=== PATIENT | female | born 2000 | race Caucasian/White ===

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

== ENCOUNTER 2020-03-04 12:59 | Emergency (ER) | payer OTHER ==
[~2020-03-04] VITALS: Ht 162.6 cm; Wt 63.5 kg
[2020-03-04] MEDS ORDERED: TRET0.02 (13:09)
[2020-03-04] MEDS ORDERED: SERT50TA29 (13:09)
[2020-03-04] MEDS ORDERED: BUSP5TA (13:09)
[2020-03-04] MEDS ORDERED: BENZ5LIQ14 (13:09)
[2020-03-04] MEDS ORDERED: DEPO150I (13:09)
[2020-03-04] MEDS ORDERED: MINO100C4 (13:09)
[2020-03-04] MEDS ORDERED: FAMOTIDINE INJ 20MG/2ML VIAL (S0028 PER 1) IVP ONE (13:45)
[2020-03-04] MEDS ORDERED: NS 1,000 ML IV ONE (13:45)
[2020-03-04] MEDS ORDERED: diphenhydrAMINE 50MG/ML VIAL (J1200) IV ONE (13:45)
[2020-03-04 14:48] LABS: BASO % 0.3 % (0.0-1.0); EOS # 0.1 10^3/uL (0.0-0.5); HEMATOCRIT 46.2 % (36.0-47.0); HEMOGLOBIN 14.7 g/dl (12.0-15.5); LYMPH # 1.2 10^3/uL (1.5-5.0); LYMPH % 10.4 % (24.0-44.0); MEAN CORPUSCULAR HEMOGLOBIN 28.9 pg (27.0-33.0); MEAN CORPUSCULAR HGB CONC 31.8 g/dl (32.0-36.5); MEAN CORPUSCULAR VOLUME 90.8 fl (80.0-96.0); MONO # 0.7 10^3/uL (0.0-0.8); MONO % 6.4 % (0.0-5.0); NEUTROPHILS # 9.3 10^3/uL (1.5-8.5); NEUTROPHILS % 81.6 % (36.0-66.0); PLATELET COUNT, AUTOMATED 274 10^3/uL (150-450); RED BLOOD COUNT 5.09 10^6/uL (4.00-5.40); WHITE BLOOD COUNT 11.3 10^3/uL (4.0-10.0)
[2020-03-04 15:11] LABS: ERYTHROCYTE SEDIMENTATION RATE 23 mm/hr (0-20)
[2020-03-04 15:17] LABS: HCG, SERUM QUALITATIVE NEGATIVE (NEGATIVE); MONO REFLEX EBV COMP NEGATIVE (NEGATIVE)
[2020-03-04 15:19] LABS: ALBUMIN 4.1 GM/DL (3.2-5.2); ALT/SGPT 16 U/L (12-78); BILIRUBIN,DIRECT 0.2 MG/DL (0.0-0.2); BILIRUBIN,TOTAL 0.9 MG/DL (0.2-1.0); BLOOD UREA NITROGEN 11 MG/DL (7-18); C REACTIVE PROTEIN QUANTITATIV 3.68 MG/DL (0.00-0.30); CALCIUM LEVEL 9.2 MG/DL (8.5-10.1); CARBON DIOXIDE LEVEL 23 MEQ/L (21-32); CHLORIDE LEVEL 108 MEQ/L (98-107); CREATININE FOR GFR 0.85 MG/DL (0.55-1.30); GLUCOSE, FASTING 82 MG/DL (70-100); POTASSIUM SERUM 4.3 MEQ/L (3.5-5.1); SODIUM LEVEL 138 MEQ/L (136-145); TOTAL PROTEIN 8.2 GM/DL (6.4-8.2)
[2020-03-04] MEDS ORDERED: ISOVUE-370 76% 100ML VIAL As Ordered ONE (15:54)
[2020-03-04] MEDS ORDERED: dexameTHASONE 20MG/5ML VIAL (J1100 PER 1MG) IV ONE (16:00)
[2020-03-04 16:17] VITALS: BP 138/73
--- NOTE | 2020-03-04 16:23 | REP ---
INDICATION: rlq pain, n,v. COMPARISON: None TECHNIQUE: Axial contrast-enhanced images from the lung bases to the pubic symphysis using 100 cc Isovue 370 intravenous contrast material. Coronal and sagittal reformations obtained. This CT examination was performed using the following dose reduction techniques: Automated exposure control, adjustment of mA and/or kv according to the patient's size, and the use of iterative reconstruction technique. FINDINGS: Right lower quadrant/pericecal adenopathy consistent with mesenteric adenitis. Normal appendix and terminal ileum identified. No evidence for bowel obstruction or perforation. Liver, spleen, pancreas, gallbladder, bilateral adrenal glands and kidneys appear normal (high density material within the bilateral renal pelvises likely reflect early contrast accumulation and less likely nephroliths). Pelvis demonstrates normal bladder and age-appropriate uterus/adnexa. No pelvic fluid or ascites. No free air. No adenopathy. Abdominal aorta and vasculature without aneurysm or dissection. Musculoskeletal structures are intact and without acute osseous abnormality. Lung bases are clear. IMPRESSION: Findings most compatible with acute mesenteric adenitis. <Electronically signed by Umesh French > 03/04/20 [id number]
[2020-03-04] MEDS ORDERED: PEPC1TAB5 PO (17:02)
[2020-03-04] MEDS ORDERED: PRED20TA PO (17:02)
[2020-03-06 18:07] LABS: EBV AB TO NUCLEAR ANTIGEN <18.0 U/mL (0.0-17.9); EBV VIRAL CAPSID AG IgG <18.0 U/mL (0.0-17.9); EBV VIRAL CAPSID AG IgM <36.0 U/mL (0.0-35.9); Lyme Disease IgG/IgM Antibodie <0.91 ISR (0.00-0.90); Lyme Disease IgM Ab Quantitati <0.80 index (0.00-0.79)
== END 2020-03-04 17:16 | disposition home or self-care (01) ==
LOC: M ED 12:59
DX: B34.8 Other viral infections of unspecified site (principal); I88.0 Nonspecific mesenteric lymphadenitis; B34.1 Enterovirus infection, unspecified; L29.9 Pruritus, unspecified; L50.9 Urticaria, unspecified; R19.7 Diarrhea, unspecified; J02.9 Acute pharyngitis, unspecified; F33.9 Major depressive disorder, recurrent, unspecified; F41.9 Anxiety disorder, unspecified
CPT/HCPCS: 36415; 74177; 80048; 80076; 84703; 85025; 85652; 86140; 86308; 86617; 86664; 86665; 87486; 87581; 87633; 87798; 87880; 96361; 96374; 96375; 99284; J1100; J1200; Q9967

== ENCOUNTER → 2020-04-27 | Outpatient (REF) | payer SELFPAY ==
[~2020-04-27] MED LIST: BENZ5LIQ14; BUSP5TA; DEPO150I; MINO100C4; PEPC1TAB5 PO; PRED20TA PO; SERT50TA29; TRET0.02
== END ==
LOC: M LABSMTC 09:45 → EDSTATUS 12:50
PROVIDERS: ATTEND Pediatrics
DX: Z20.822 Contact with and (suspected) exposure to COVID-19 (principal)

== ENCOUNTER → 2020-05-14 | Outpatient (REF) | payer OTHER | LOC: M WUC 13:22 | PROVIDERS: ATTEND Physician Assistant | DX: N39.0 Urinary tract infection, site not specified (principal) ==

== ENCOUNTER → 2020-05-16 | Outpatient (REF) | LOC: M LABSMTC 13:03 | PROVIDERS: ATTEND Family Medicine | DX: Z20.818 Contact with and (suspected) exposure to other bacterial communicable diseases (principal) ==

== ENCOUNTER → 2020-05-30 | Outpatient (CLI) | payer SELFPAY | LOC: M LABSMTC 14:01 | PROVIDERS: ATTEND Pediatrics | DX: Z20.822 Contact with and (suspected) exposure to COVID-19 (principal) ==

== ENCOUNTER → 2020-06-06 | Outpatient (CLI) | payer SELFPAY | LOC: M LABSMTC 14:01 | PROVIDERS: ATTEND Pediatrics | DX: Z20.822 Contact with and (suspected) exposure to COVID-19 (principal) ==

== ENCOUNTER → 2020-06-13 | Outpatient (CLI) | payer SELFPAY | LOC: M LABSMTC 12:43 | PROVIDERS: ATTEND Pediatrics | DX: Z11.52 Encounter for screening for COVID-19 (principal) ==

== ENCOUNTER → 2020-06-25 | Outpatient (REF) | payer OTHER | LOC: M WUC 20:36 | PROVIDERS: ATTEND Physician Assistant | DX: R30.0 Dysuria (principal) ==

== ENCOUNTER → 2020-07-02 | Outpatient (CLI) | payer SELFPAY | LOC: M LABSMTC 12:57 | PROVIDERS: ATTEND Pediatrics | DX: Z20.822 Contact with and (suspected) exposure to COVID-19 (principal) ==

== ENCOUNTER → 2020-07-16 | Outpatient (CLI) | payer SELFPAY | LOC: M LABSMTC 13:08 | PROVIDERS: ATTEND Pediatrics | DX: Z20.828 Contact with and (suspected) exposure to other viral communicable diseases (principal) ==

== ENCOUNTER → 2020-07-23 | Outpatient (CLI) | payer SELFPAY | LOC: M LABSMTC 14:15 | PROVIDERS: ATTEND Pediatrics | DX: Z11.52 Encounter for screening for COVID-19 (principal) ==

== ENCOUNTER → 2020-07-30 | Outpatient (CLI) | payer SELFPAY | LOC: M LABSMTC 12:05 | PROVIDERS: ATTEND Pediatrics | DX: Z20.828 Contact with and (suspected) exposure to other viral communicable diseases (principal); Z11.59 Encounter for screening for other viral diseases ==

== ENCOUNTER → 2020-08-06 | Outpatient (CLI) | payer SELFPAY | LOC: M LABSMTC 13:32 | PROVIDERS: ATTEND Pediatrics | DX: Z20.822 Contact with and (suspected) exposure to COVID-19 (principal) ==

== ENCOUNTER → 2020-08-13 | Outpatient (CLI) | payer SELFPAY | LOC: M LABSMTC 13:01 | PROVIDERS: ATTEND Pediatrics | DX: Z11.52 Encounter for screening for COVID-19 (principal) ==

== ENCOUNTER → 2020-08-18 | Outpatient (REF) | payer SELFPAY, OTHER | LOC: M WUC 16:15 | PROVIDERS: ATTEND Physician Assistant | DX: N39.0 Urinary tract infection, site not specified (principal) ==

== ENCOUNTER → 2020-11-06 | Outpatient (REF) | LOC: M EMP 09:38 | PROVIDERS: ATTEND Family Medicine | DX: Z20.822 Contact with and (suspected) exposure to COVID-19 (principal) ==

== ENCOUNTER → 2020-11-15 | Outpatient (REF) | payer OTHER | LOC: M WUC 15:19 | PROVIDERS: ATTEND Physician Assistant | DX: N39.0 Urinary tract infection, site not specified (principal) ==

== ENCOUNTER → 2020-11-29 | Outpatient (REF) | payer OTHER | LOC: M LAB REF 19:44 | PROVIDERS: ATTEND Physician Assistant | DX: J03.90 Acute tonsillitis, unspecified (principal) ==

== ENCOUNTER → 2020-11-29 | Outpatient (REF) | LOC: M LABSMTC 12:25 | PROVIDERS: ATTEND Pediatrics | DX: Z20.822 Contact with and (suspected) exposure to COVID-19 (principal) ==

== ENCOUNTER 2021-05-14 23:36 | Emergency (ER) | payer OTHER ==
[~2021-05-14] VITALS: Ht 162.6 cm; Wt 54.5 kg
[2021-05-15] MEDS ORDERED: KETOROLAC 30 MG/ML 1ML VIAL IV ONE (02:40)
[2021-05-15] MEDS ORDERED: diphenhydrAMINE 50MG/ML VIAL (J1200) IV ONE (02:40)
[2021-05-15] MEDS ORDERED: METOCLOPRAMIDE INJ 10MG/2ML VIAL (J2765 PER 1) IV ONE (02:40)
[2021-05-15] MEDS ORDERED: NS 1,000 ML IV ONE (02:40)
[2021-05-15 02:51] VITALS: BP 122/69
[2021-05-15] MEDS ORDERED: MIRE1IUD IU (04:43)
== END 2021-05-15 05:20 | disposition home or self-care (01) ==
LOC: M ED 23:36
DX: G43.909 Migraine, unspecified, not intractable, without status migrainosus (principal)
CPT/HCPCS: 96361; 96374; 96375; 99284; J1200; J1885; J2765

== ENCOUNTER 2021-10-26 01:58 | Emergency (ER) | payer OTHER ==
[~2021-10-26] VITALS: Ht 162.6 cm; Wt 63.6 kg
[~2021-10-26 01:58] MED LIST changes: +MIRE1IUD IU
[2021-10-26 02:51] LABS: BASO # 0.1 10^3/uL (0.0-0.2); BASO % 0.6 % (0.0-1.0); EOS # 0.9 10^3/uL (0.0-0.5); HEMATOCRIT 33.1 % (36.0-47.0); HEMOGLOBIN 11.1 g/dl (12.0-15.5); LYMPH # 2.7 10^3/uL (1.5-5.0); LYMPH % 17.6 % (24.0-44.0); MEAN CORPUSCULAR HEMOGLOBIN 31.4 pg (27.0-33.0); MEAN CORPUSCULAR HGB CONC 33.5 g/dl (32.0-36.5); MEAN CORPUSCULAR VOLUME 93.5 fl (80.0-96.0); MONO % 6.2 % (2.0-8.0); NEUTROPHILS # 10.5 10^3/uL (1.5-8.5); NEUTROPHILS % 68.7 % (36.0-66.0); PLATELET COUNT, AUTOMATED 293 10^3/uL (150-450); RED BLOOD COUNT 3.54 10^6/uL (4.00-5.40); WHITE BLOOD COUNT 15.3 10^3/uL (4.0-10.0)
[2021-10-26 03:14] LABS: BLOOD UREA NITROGEN 5 MG/DL (7-18); CALCIUM LEVEL 8.9 MG/DL (8.5-10.1); CARBON DIOXIDE LEVEL 23 MEQ/L (21-32); CHLORIDE LEVEL 108 MEQ/L (98-107); CREATININE FOR GFR 0.58 MG/DL (0.55-1.30); GLUCOSE, FASTING 107 MG/DL (70-100); POTASSIUM SERUM 3.5 MEQ/L (3.5-5.1); SODIUM LEVEL 141 MEQ/L (136-145)
[2021-10-26 03:17] LABS: CK-MB VALUE MASS < 1.0 NG/ML (<3.6); CPK CREATINE PHOSPHOKINASE 38 U/L (26-192); MB/CK RELATIVE INDEX 2.63 (< OR =4)
[2021-10-26] MEDS ORDERED: ONE1MIS PO (04:04)
[2021-10-26 05:26] VITALS: BP 127/81
== END 2021-10-26 05:29 | disposition admitted as inpatient to this hospital (09) ==
LOC: M ED 01:58
DX: R00.2 Palpitations (principal); E86.0 Dehydration

== ENCOUNTER 2021-10-26 05:25 | Outpatient (CLI) | payer OTHER ==
[~2021-10-26] VITALS: Ht 162.6 cm; Wt 70.4 kg
[~2021-10-26 05:25] MED LIST changes: +ONE1MIS PO
[2021-10-26 05:59] VITALS: BP 126/83
[2021-10-26 06:03] VITALS: BP 131/76
[2021-10-26 15:41] LABS: GC DNA AMPLIFICATION NEGATIVE (NEGATIVE)
== END 2021-10-26 06:28 | disposition home or self-care (01) ==
LOC: M LDO 05:25
PROVIDERS: ATTEND Obstetrics & Gynecology
DX: O26.892 Other specified pregnancy related conditions, second trimester (principal); R25.2 Cramp and spasm; R50.9 Fever, unspecified; R00.0 Tachycardia, unspecified; Z3A.20 20 weeks gestation of pregnancy
CPT/HCPCS: 81001; 87081; 87810; 87850; G0463

== ENCOUNTER → 2021-12-26 | Outpatient (CLI) | payer BC, OTHER, SELFPAY | LOC: M WHC 12:36 | PROVIDERS: ATTEND Obstetrics & Gynecology Obstetrics | DX: Z34.02 Encounter for supervision of normal first pregnancy, second trimester (principal); Z3A.30 30 weeks gestation of pregnancy ==

== ENCOUNTER → 2021-12-27 | Outpatient (CLI) | payer BC ==
[2021-12-27 10:48] LABS: HEMATOCRIT 31.1 % (36.0-47.0); HEMOGLOBIN 9.9 g/dl (12.0-15.5); MEAN CORPUSCULAR HEMOGLOBIN 30.3 pg (27.0-33.0); MEAN CORPUSCULAR HGB CONC 31.8 g/dl (32.0-36.5); MEAN CORPUSCULAR VOLUME 95.1 fl (80.0-96.0); PLATELET COUNT, AUTOMATED 297 10^3/uL (150-450); RED BLOOD COUNT 3.27 10^6/uL (4.00-5.40)
== END ==
LOC: M PLALAB 08:07
PROVIDERS: ATTEND Obstetrics & Gynecology Obstetrics
DX: Z34.02 Encounter for supervision of normal first pregnancy, second trimester (principal); Z3A.00 Weeks of gestation of pregnancy not specified

== ENCOUNTER → 2022-01-17 | Outpatient (CLI) | payer BC | LOC: M LAB 07:27 | PROVIDERS: ATTEND Obstetrics & Gynecology Obstetrics | DX: Z34.03 Encounter for supervision of normal first pregnancy, third trimester (principal); Z3A.00 Weeks of gestation of pregnancy not specified ==

== ENCOUNTER → 2022-02-09 | Outpatient (REF) | LOC: M LABSMTC 10:03 | PROVIDERS: ATTEND Family Medicine | DX: Z20.828 Contact with and (suspected) exposure to other viral communicable diseases (principal); Z11.59 Encounter for screening for other viral diseases ==

== ENCOUNTER → 2022-07-14 | Outpatient (REF) | LOC: M EMP 09:18 | PROVIDERS: ATTEND Family Medicine | DX: Z11.52 Encounter for screening for COVID-19 (principal) ==